=== PATIENT | female | born 1980 | race Caucasian/White ===

== ENCOUNTER 2024-07-10 07:44 | Day surgery (SDC) | payer OTHER ==
[~2024-07-10 07:44] MED LIST: Dexamethasone 4 MG/ML 5 ML MDV ONE; Lactated Ringers 1,000 ML ONE; Lidocaine 1% 30 ML SDV ONE; Lidocaine 1% 4 ML ONE; Midazolam 1 MG/ML 2 ML SDV ONE; Ondansetron 4 MG/2 ML SDV ONE; Propofol 200 MG/20 ML SDV ONE; Rocuronium 50 MG/5 ML Vial ONE; Sodium Chloride 0.9% 10 ML Syringe FLUSH PRN; Sodium Chloride 0.9% 10 ML Syringe FLUSH SCH; ceFAZolin 2 GM Vial ONE; dexmedeTOMIDine HCl 200 MCG/2 ML SDV ONE; fentaNYL 250 MCG/5 ML SDV ONE
[2024-07-10] MEDS: Lactated Ringers 1,000 ML IV SCH (08:00)
[2024-07-10] MEDS ORDERED: Celecoxib 100 MG Cap PO ONE (08:00)
[2024-07-10] MEDS ORDERED: Acetaminophen 325 MG Tab PO ONE (08:00)
[2024-07-10 08:16] LABS: BASOPHILS PERCENT AUTO 0.5 % (0.0-1.0); EOSINOPHILS ABSOLUTE AUTO 0.1 K/mm3 (0.0-0.4); EOSINOPHILS PERCENT AUTO 2.1 % (0.0-6.0); HEMATOCRIT 42.5 % (37.0-47.0); HEMOGLOBIN 15.2 gm/dl (12.0-16.0); IMMATURE GRAN ABSOLUTE AUTO 0.02 K/mm3 (0.00-0.05); IMMATURE GRAN PERCENT AUTO 0.4 % (0.0-0.4); LYMPHOCYTES ABSOLUTE AUTO 2.4 K/mm3 (1.0-4.8); LYMPHOCYTES PERCENT AUTO 41.9 % (24.0-44.0); MEAN CORPUSCULAR HEMOGLOBIN 31.7 pg (28.0-32.0); MEAN CORPUSCULAR HGB CONC 35.8 g/dl (32.0-36.0); MEAN CORPUSCULAR VOLUME 88.7 fl (83.0-99.0); MONOCYTES ABSOLUTE AUTO 0.6 K/mm3 (0.0-0.8); MONOCYTES PERCENT AUTO 10.2 % (0.0-8.0); NEUTROPHILS ABSOLUTE AUTO 2.6 K/mm3 (1.8-7.7); NEUTROPHILS PERCENT AUTO 44.9 % (41.0-71.0); PLATELET COUNT,PLT 344 K/mm3 (150-400); RED BLOOD CELL COUNT 4.79 M/mm3 (4.10-5.30); WHITE BLOOD CELL COUNT,WBC 5.71 K/mm3 (3.9-11.3)
[2024-07-10 08:34] LABS: ANION GAP 14.9 (5-15); BUN/CREATININE RATIO 8.9 (14-18); CALCIUM 8.9 mg/dL (8.5-10.1); CREATININE 0.9 mg/dL (0.55-1.02); EST CRCL DRUG DOSING (CG) 71.03 mL/min; POTASSIUM,K 3.9 mEq/L (3.5-5.1)
[2024-07-10] MEDS: Celecoxib 100 MG Cap PO ONE (08:40)
[2024-07-10] MEDS: Acetaminophen 325 MG Tab PO ONE (08:40)
[2024-07-10] MEDS: Phenazopyridine 95 MG Tab PO ONE (08:40)
[2024-07-10] MEDS: Gabapentin 300 MG Cap PO ONE (08:41)
[2024-07-10] MEDS ORDERED: Gabapentin 600 MG Tab PO ONE (09:00)
[2024-07-10] MEDS ORDERED: HYDROmorphone 0.5 MG/0.5 ML Syringe ONE (09:45)
[2024-07-10] MEDS ORDERED: ePHEDrine 50 MG/ML SDV ONE (10:10)
[2024-07-10] MEDS: EPINEPHrine 1 MG/ML SDV ONE (10:10)
[2024-07-10] MEDS: Lidocaine 1% 10 ML MDV ONE (10:10)
[2024-07-10] MEDS ORDERED: HYDROmorphone 0.5 MG/0.5 ML Syringe IVPUSH PRN (10:22)
[2024-07-10] MEDS ORDERED: Ondansetron 4 MG/2 ML SDV IVPUSH PRN (10:22)
[2024-07-10] MEDS ORDERED: Ketorolac 30 MG/ML SDV ONE (11:06)
[2024-07-10] MEDS ORDERED: Sugammadex Sodium 200 MG/2 ML VIAL IV ONE (11:07)
[2024-07-10] MEDS ORDERED: oxyCODONE 5 MG Tab PO PRN (11:45)
[2024-07-10] MEDS: fentaNYL 100 MCG/2 ML SDV IVPUSH PRN (12:26)
== END 2024-07-10 14:55 | disposition home or self-care (01) ==
LOC: JD.SDS 07:44
PROVIDERS: ATTEND Obstetrics & Gynecology
DX: D25.1 Intramural leiomyoma of uterus (principal); D25.2 Subserosal leiomyoma of uterus; N84.0 Polyp of corpus uteri; N80.03 Adenomyosis of the uterus; E03.9 Hypothyroidism, unspecified; Z87.891 Personal history of nicotine dependence
CPT/HCPCS: 36415; 58554; 80048; 81025; 85025; 86850; 86900; 86901; A9270; J0171; J0690; J1100; J1171; J1885; J2250; J2405; J2704; J3010; J3490; J7120; 00840